=== PATIENT | female | born 1970 | race Two or more races ===

== ENCOUNTER 2016-12-04 13:10 | Emergency (ER) | payer OTHER ==
[~2016-12-04] VITALS: Ht 152.4 cm; Wt 41.7 kg
--- NOTE | 2016-12-04 13:10 | NUR ---
DOG BITE TO RLE AND R HAND TODAY. NAD NOTED. PT AAO X4,AMB WITH STEADY GAIT. RR EVEN AND UNLABORED. PT DENIES HAVING TETANUS SHOT. VSS. PENDING MD DELEON.
[2016-12-04 13:11] VITALS: BP 117/70
[2016-12-04] MEDS ORDERED: TDAP [DIPH/PERTUSSIS/TET] 0.5 ML VIAL IM ONE ×2 (13:23→13:30)
== END 2016-12-04 13:59 | disposition home or self-care (01) ==
LOC: ER 13:14
DX: S61.254A Open bite of right ring finger without damage to nail, initial encounter (principal); S81.851A Open bite, right lower leg, initial encounter; W54.0XXA Bitten by dog, initial encounter; Y93.89 Activity, other specified; Y92.89 Other specified places as the place of occurrence of the external cause; Y99.8 Other external cause status
CPT/HCPCS: 90471; 99283; A4606; A6402; Z7610

== ENCOUNTER 2017-08-30 13:55 | Emergency (ER) | payer OTHER ==
[~2017-08-30] VITALS: Ht 152.4 cm; Wt 44.0 kg
[2017-08-30 13:59] VITALS: BP 103/76
[2017-08-30] MEDS ORDERED: IPRATROPIUM NEB FS 0.5 MG/2.5 ML AMPUL.NEB NEB ONE (14:30)
[2017-08-30] MEDS ORDERED: ALBUTEROL FS 2.5 MG/3 ML VIAL.NEB NEB ONE (14:30)
[2017-08-30] MEDS ORDERED: ALBUTEROL FS 2.5 MG/3 ML VIAL.NEB ONE (14:35)
[2017-08-30] MEDS ORDERED: IPRATROPIUM NEB FS 0.5 MG/2.5 ML AMPUL.NEB ONE (14:35)
[2017-08-30] MEDS ORDERED: predniSONE 20 MG TABLET ONE (14:53)
[2017-08-30] MEDS ORDERED: predniSONE 20 MG TABLET PO ONE (15:00)
== END 2017-08-30 15:45 | disposition home or self-care (01) ==
LOC: ER 13:59
DX: J40 Bronchitis, not specified as acute or chronic (principal); R05 Cough
CPT/HCPCS: 71045-TC; A4606; Z7610